=== PATIENT | female | born 1995 | race Caucasian/White ===

== ENCOUNTER 2017-12-15 16:37 | Inpatient (IN) | payer BC, OTHER ==
[~2017-12-15] VITALS: Ht 154.9 cm; Wt 37.0 kg
[2017-12-15] MEDS ORDERED: QUET100T PO (16:58)
[2017-12-15] MEDS ORDERED: MIRT30TA PO (16:58)
[2017-12-15] MEDS ORDERED: PROM25TA15 PO (16:58)
[2017-12-15] MEDS ORDERED: HYDR50TA61 PO (16:58)
[2017-12-15] MEDS ORDERED: PRAZ2CAP2 PO (16:58)
[2017-12-15] MEDS ORDERED: CLON2TAB PO (16:58)
[2017-12-15] MEDS ORDERED: QUET400T PO (16:58)
[2017-12-15] MEDS ORDERED: TRAZ-214 PO (16:58)
[2017-12-15] MEDS ORDERED: HYDROMORPHONE 1 MG/1 ML DISP.SYRIN ONE ×2 (17:15→20:39)
[2017-12-15] MEDS ORDERED: ONDANSETRON 4 MG/2 ML VIAL ONE ×2 (17:15→20:22)
[2017-12-15] MEDS ORDERED: HYDROMORPHONE 1 MG/1 ML DISP.SYRIN IM ONE (17:15)
[2017-12-15] MEDS ORDERED: ONDANSETRON 4 MG/2 ML VIAL IM ONE (17:15)
[2017-12-15 17:26] LABS: BASOPHILS % (AUTO) 0.4 % (0.0-2.0); EOSINOPHILS % (AUTO) 0.3 % (0.0-7.0); HEMATOCRIT 38.6 % (31.2-41.9); HEMOGLOBIN 13.5 g/dL (10.9-14.3); LYMPHOCYTES # (AUTO) 1.9 K/uL (20.0-40.0); LYMPHOCYTES % (AUTO) 25.5 % (20.5-51.5); MEAN CORPUSCULAR HEMOGLOBIN 31.9 uug (24.7-32.8); MEAN CORPUSCULAR HGB CONC 35 g/dL (32.3-35.6); MEAN CORPUSCULAR VOLUME 91.3 fL (75.5-95.3); MONOCYTES # (AUTO) 0.5 K/uL (2.0-10.0); MONOCYTES % (AUTO) 6.4 % (0.0-11.0); NEUTROPHILS % (AUTO) 67.4 % (38.5-71.5); PLATELET COUNT (AUTO) 579 K/uL (179-408); RED BLOOD CELL COUNT(AUTO) 4.23 MIL/uL (3.63-4.92); WHITE BLOOD COUNT (AUTO) 7.4 K/uL (3.8-11.8)
[2017-12-15 17:27] LABS: *URINE HCG, QUAL NEGATIVE (NEGATIVE)
[2017-12-15 17:36] LABS: CREATININE 1.6 mg/dL (0.6-1.3)
[2017-12-15 17:42] LABS: POTASSIUM 2.1 mmol/L (3.5-5.1)
[2017-12-15] MEDS ORDERED: POTASSIUM CHLORIDE 20 MEQ TAB.PRT.SR PO ONE (17:45)
[2017-12-15] MEDS ORDERED: POTASSIUM CHLORIDE 20 MEQ TAB.PRT.SR ONE (17:45)
[2017-12-15] MEDS ORDERED: IV NORMAL SALINE 500 ML BAG IV ONE (18:15)
[2017-12-15] MEDS ORDERED: POTASSIUM CHLORIDE 50 ML ONE ×2 (18:29→21:22)
[2017-12-15] MEDS ORDERED: CLONAZEPAM 1 MG TABLET ONE (18:29)
[2017-12-15] MEDS ORDERED: CLONAZEPAM 0.5 MG TABLET PO ONE (18:30)
[2017-12-15] MEDS: POTASSIUM CHLORIDE 50 ML IV SCH ×3 (18:34→18:44)
[2017-12-15 18:45] LABS: MAGNESIUM 2.6 mg/dL (1.8-2.4); PHOSPHOROUS 4.3 mg/dL (2.5-4.9)
[2017-12-15] MEDS ORDERED: PROMETHAZINE HCL INJ 12.5 MG in IV DEXTROSE 5% 50 ML IV ONE (18:45)
[2017-12-15] MEDS ORDERED: METOCLOPRAMIDE HCL 10 MG/2 ML VIAL ONE (18:54)
[2017-12-15 19:05] LABS: ALANINE AMINOTRANSFERASE 18 U/L (14-59); ALKALINE PHOSPHATASE 107 U/L (50-136); ASPARTATE AMINOTRANSFERASE 26 U/L (15-37); BILIRUBIN,DIRECT 0.1 mg/dL (0.0-0.2); BILIRUBIN,TOTAL 0.3 mg/dL (0.2-1.0); TOTAL PROTEIN, SERUM 10.2 g/dL (6.4-8.2)
[2017-12-15] MEDS ORDERED: METOCLOPRAMIDE HCL 10 MG/2 ML VIAL IV ONE (19:15)
[2017-12-15] MEDS ORDERED: POTASSIUM CHLORIDE 50 ML IV SCH (20:15)
[2017-12-15] MEDS ORDERED: ONDANSETRON 4 MG/2 ML VIAL IV ONE (20:15)
[2017-12-15] MEDS ORDERED: HYDROMORPHONE 1 MG/1 ML DISP.SYRIN IV ONE (20:30)
[2017-12-15] MEDS ORDERED: MORPHINE SULFATE 4 MG/1 ML DISP.SYRIN IV PRN (22:30)
[2017-12-15] MEDS ORDERED: IV 0.9% SODIUM CHLORID+ 20 KCL 1,000 ML IV PRN (22:30)
[2017-12-15] MEDS: MIRTAZAPINE 15 MG TABLET PO SCH (22:49)
[2017-12-15] MEDS: TRAZODONE 100 MG TABLET PO SCH (22:49)
[2017-12-16] VITALS: BP 113/72
[2017-12-16] MEDS: diphenhydrAMINE 50 MG/1 ML VIAL IV PRN (00:31)
[2017-12-16] MEDS ORDERED: QUETIAPINE FUMARATE 100 MG TABLET PO ONE (01:15)
[2017-12-16] MEDS ORDERED: PRAZOSIN HCL 1 MG CAPSULE PO ONE (01:30)
[2017-12-16] MEDS: CLONAZEPAM 1 MG TABLET PO PRN ×2 (01:46→20:54)
[2017-12-16] MEDS: POTASSIUM CHLORIDE 50 ML IV SCH ×2 (01:48→03:32)
[2017-12-16] MEDS: MORPHINE SULFATE 4 MG/1 ML DISP.SYRIN IV PRN ×4 (02:26→11:59)
[2017-12-16 05:00] VITALS: BP 95/63
[2017-12-16 05:26] LABS: *BLOOD, URINE NEGATIVE (NEGATIVE); *CLARITY,URINE SLIGHTLY CLOUDY (CLEAR); *COLOR,URINE DARK YELLOW (YELLOW); *KETONES,URINE TRACE (NEGATIVE); *PROTEIN,URINE 2+ (NEGATIVE); *UROBILINOGEN,URINE 0.2 E.U./dl (NORMAL); LEUKOCYTE ESTERASE ,URINE NEGATIVE (NEGATIVE); NITRITE, URINE NEGATIVE (NEGATIVE); PH,URINE 8.5 (5.0-8.0); UGLUCOSE NEGATIVE (NEGATIVE)
[2017-12-16 05:32] LABS: *BILIRUBIN,URIN 1+ (NEGATIVE)
[2017-12-16 05:34] LABS: *AMPHETAMINE, URINE NEGATIVE (NEGATIVE); *BARBITURATE, URINE NEGATIVE (NEGATIVE); *CANNABINOID, URINE POSITIVE (NEGATIVE); *COCCAINE, URINE NEGATIVE (NEGATIVE); *OPIATE, URINE POSITIVE (NEGATIVE); *PHENCYCLIDINE SCREEN,URINE NEGATIVE (NEGATIVE)
[2017-12-16 05:36] LABS: BACTERIA,URINE FEW /HPF (NONE SEEN); MUCUS,URINE FEW /LPF (0-FEW); SQUAMOUS EPITHELIAL CELL,UR MODERATE /HPF (NONE SEEN)
[2017-12-16] MEDS: PANTOPRAZOLE SODIUM 40 MG TABLET.DR PO SCH (06:20)
[2017-12-16] MEDS: NICOTINE 21 MG/24HR PATCH TD SCH (09:00)
[2017-12-16] MEDS ORDERED: QUETIAPINE FUMARATE 100 MG TABLET PO SCH (09:00)
[2017-12-16] MEDS: ONDANSETRON 4 MG/2 ML VIAL IV PRN ×3 (09:01→17:32)
[2017-12-16 09:41] LABS: BASOPHILS # (AUTO) 0.1 K/uL (0.0-8.0); BASOPHILS % (AUTO) 0.7 % (0.0-2.0); EOSINOPHILS # (AUTO) 0.1 K/uL (0.0-0.7); EOSINOPHILS % (AUTO) 1.9 % (0.0-7.0); HEMATOCRIT 35.3 % (31.2-41.9); HEMOGLOBIN 12.3 g/dL (10.9-14.3); LYMPHOCYTES # (AUTO) 3.3 K/uL (20.0-40.0); LYMPHOCYTES % (AUTO) 41.8 % (20.5-51.5); MEAN CORPUSCULAR HEMOGLOBIN 31.9 uug (24.7-32.8); MEAN CORPUSCULAR HGB CONC 35 g/dL (32.3-35.6); MONOCYTES # (AUTO) 0.5 K/uL (2.0-10.0); MONOCYTES % (AUTO) 5.8 % (0.0-11.0); NEUTROPHILS # (AUTO) 3.9 K/uL (1.8-8.9); NEUTROPHILS % (AUTO) 49.8 % (38.5-71.5); RED BLOOD CELL COUNT(AUTO) 3.84 MIL/uL (3.63-4.92); WHITE BLOOD COUNT (AUTO) 7.8 K/uL (3.8-11.8)
[2017-12-16 09:54] LABS: PLATELET COUNT (AUTO) 407 K/uL (179-408)
[2017-12-16 09:55] LABS: BILIRUBIN,TOTAL 0.2 mg/dL (0.2-1.0); CREATININE 1.4 mg/dL (0.6-1.3); MAGNESIUM 2.5 mg/dL (1.8-2.4); PHOSPHOROUS 2.7 mg/dL (2.5-4.9); TOTAL PROTEIN, SERUM 8.6 g/dL (6.4-8.2)
[2017-12-16 09:57] LABS: POTASSIUM 2.5 mmol/L (3.5-5.1)
[2017-12-16] MEDS ORDERED: POTASSIUM CHLORIDE 20 MEQ TAB.PRT.SR PO ONE ×2 (11:00→11:15)
[2017-12-16 11:31] VITALS: BP 104/59
[2017-12-16] MEDS: POTASSIUM CHLORIDE 10 MEQ, LIDOCAINE-MPF 1% 1 ML in IV DEXTROSE 5% 100 ML IV SCH ×4 (11:31→14:48)
[2017-12-16] MEDS: POTASSIUM CHLORIDE 40 MEQ in IV NS 1000 ML 1,000 ML IV PRN (11:49)
[2017-12-16] MEDS: ACETAMINOPHEN 325 MG TABLET PO PRN (14:17)
[2017-12-16] MEDS: CEPHALEXIN MONOHYDRATE 500 MG CAPSULE PO SCH ×2 (14:19→21:02)
[2017-12-16 15:27] VITALS: BP 91/61
[2017-12-16] MEDS ORDERED: HYDROCODONE/APAP 10-325 MG TABLET PO PRN (16:45)
[2017-12-16] MEDS ORDERED: HYDROCODONE/APAP 5-325MG TABLET PO PRN (16:45)
[2017-12-16 20:22] VITALS: BP 101/55
[2017-12-16] MEDS: QUETIAPINE FUMARATE 100 MG TABLET PO SCH (20:54)
[2017-12-16] MEDS: TRAZODONE 100 MG TABLET PO SCH (20:54)
[2017-12-16] MEDS: MIRTAZAPINE 15 MG TABLET PO SCH (20:55)
[2017-12-16] MEDS: PRAZOSIN HCL 1 MG CAPSULE PO SCH (20:57)
[2017-12-17] VITALS (7 sets, daily range): BP systolic 85–111; BP diastolic 45–77
[2017-12-17] MEDS: CEPHALEXIN MONOHYDRATE 500 MG CAPSULE PO SCH ×3 (05:40→21:04)
[2017-12-17] MEDS: PANTOPRAZOLE SODIUM 40 MG TABLET.DR PO SCH (05:40)
[2017-12-17] MEDS: TRAMADOL HCL 50 MG TABLET PO PRN ×2 (05:42→14:48)
[2017-12-17] MEDS: POTASSIUM CHLORIDE 40 MEQ in IV NS 1000 ML 1,000 ML IV PRN ×2 (05:43→16:52)
[2017-12-17 06:28] LABS: BASOPHILS # (AUTO) 0.1 K/uL (0.0-8.0); BASOPHILS % (AUTO) 1.1 % (0.0-2.0); EOSINOPHILS # (AUTO) 0.2 K/uL (0.0-0.7); EOSINOPHILS % (AUTO) 3.9 % (0.0-7.0); HEMATOCRIT 32.7 % (31.2-41.9); HEMOGLOBIN 11.2 g/dL (10.9-14.3); LYMPHOCYTES # (AUTO) 2.9 K/uL (20.0-40.0); LYMPHOCYTES % (AUTO) 59.4 % (20.5-51.5); MEAN CORPUSCULAR HEMOGLOBIN 32.5 uug (24.7-32.8); MEAN CORPUSCULAR HGB CONC 34 g/dL (32.3-35.6); MEAN CORPUSCULAR VOLUME 94.4 fL (75.5-95.3); MONOCYTES # (AUTO) 0.3 K/uL (2.0-10.0); MONOCYTES % (AUTO) 6.3 % (0.0-11.0); NEUTROPHILS # (AUTO) 1.4 K/uL (1.8-8.9); NEUTROPHILS % (AUTO) 29.3 % (38.5-71.5); PLATELET COUNT (AUTO) 361 K/uL (179-408); RED BLOOD CELL COUNT(AUTO) 3.46 MIL/uL (3.63-4.92); WHITE BLOOD COUNT (AUTO) 4.9 K/uL (3.8-11.8)
[2017-12-17 06:47] LABS: CREATININE 1.1 mg/dL (0.6-1.3); MAGNESIUM 2.1 mg/dL (1.8-2.4); PHOSPHOROUS 1.3 mg/dL (2.5-4.9)
[2017-12-17] MEDS: NICOTINE 21 MG/24HR PATCH TD SCH (09:04)
[2017-12-17] MEDS: ONDANSETRON 4 MG/2 ML VIAL IV PRN (09:04)
[2017-12-17] MEDS: CLONAZEPAM 1 MG TABLET PO PRN (11:13)
[2017-12-17] MEDS: diphenhydrAMINE 50 MG/1 ML VIAL IV PRN (11:14)
[2017-12-17] MEDS ORDERED: CLONAZEPAM 1 MG TABLET PO PRN (15:45)
[2017-12-17] MEDS ORDERED: NEUTRA PHOS PACKET PO ONE (15:45)
[2017-12-17] MEDS: LIDOCAINE 5% PATCH TD SCH (15:52)
[2017-12-17] MEDS: PRAZOSIN HCL 1 MG CAPSULE PO SCH (20:04)
[2017-12-17] MEDS: QUETIAPINE FUMARATE 100 MG TABLET PO SCH (20:04)
[2017-12-17] MEDS: ACETAMINOPHEN 325 MG TABLET PO PRN (20:10)
[2017-12-17] MEDS ORDERED: MIRTAZAPINE 15 MG TABLET PO SCH (21:00)
[2017-12-18] MEDS: POTASSIUM CHLORIDE 40 MEQ in IV NS 1000 ML 1,000 ML IV PRN (02:27)
[2017-12-18 03:39] VITALS: BP 94/61
[2017-12-18] MEDS: CEPHALEXIN MONOHYDRATE 500 MG CAPSULE PO SCH (06:08)
[2017-12-18] MEDS: PANTOPRAZOLE SODIUM 40 MG TABLET.DR PO SCH (06:10)
[2017-12-18 07:18] LABS: CREATININE 0.8 mg/dL (0.6-1.3); PHOSPHOROUS 1.7 mg/dL (2.5-4.9); POTASSIUM 5.6 mmol/L (3.5-5.1)
[2017-12-18] MEDS: NICOTINE 21 MG/24HR PATCH TD SCH (08:24)
[2017-12-18] MEDS: LIDOCAINE 5% PATCH TD SCH (08:25)
[2017-12-18] MEDS: ONDANSETRON 4 MG/2 ML VIAL IV PRN (09:03)
[2017-12-18] MEDS ORDERED: IV NS 1000 ML 1,000 ML IV SCH (11:15)
[2017-12-18] MEDS ORDERED: NEUTRA PHOS PACKET PO ONE (11:15)
[2017-12-18 11:50] VITALS: BP 111/65
[2017-12-18] MEDS ORDERED: LIDO30AD10 TD (13:28)
[2017-12-18] MEDS ORDERED: ONDA4VIA23 IV (13:28)
[2017-12-18] MEDS ORDERED: NICO-672 TD (13:28)
[2017-12-18] MEDS ORDERED: CEPH500C2 PO (13:28)
[2017-12-18] MEDS ORDERED: ACET325T53 PO (13:28)
[2017-12-18] MEDS ORDERED: TRAM50TA2 PO (13:28)
[2017-12-18] MEDS ORDERED: MIRT15TA7 PO (13:28)
[2017-12-18] MEDS ORDERED: PRAZ1CAP2 PO (13:28)
[2017-12-18] MEDS ORDERED: PANT40TA2 PO (13:28)
[2017-12-18] MEDS ORDERED: QUET100T PO (13:28)
== END 2017-12-18 13:55 | disposition short-term general hospital (02) | DRG 640 ==
LOC: ER 16:39 → TELE 20:40 → MED 12-18 12:10
PROVIDERS: ADMIT Internal Medicine; ATTEND Internal Medicine
DX: E87.6 Hypokalemia (principal); N17.0 Acute kidney failure with tubular necrosis; E43 Unspecified severe protein-calorie malnutrition; N39.0 Urinary tract infection, site not specified; Z68.1 Body mass index [BMI] 19.9 or less, adult; F50.00 Anorexia nervosa, unspecified; F50.2 Bulimia nervosa; F11.23 Opioid dependence with withdrawal; F13.239 Sedative, hypnotic or anxiolytic dependence with withdrawal, unspecified; G89.4 Chronic pain syndrome; E86.0 Dehydration; B96.89 Other specified bacterial agents as the cause of diseases classified elsewhere; E78.5 Hyperlipidemia, unspecified; I45.81 Long QT syndrome; I88.9 Nonspecific lymphadenitis, unspecified; F32.9 Major depressive disorder, single episode, unspecified; Z91.81 History of falling; T40.2X5A Adverse effect of other opioids, initial encounter; T42.4X5A Adverse effect of benzodiazepines, initial encounter; Y92.9 Unspecified place or not applicable; R10.13 Epigastric pain; F17.210 Nicotine dependence, cigarettes, uncomplicated; K59.00 Constipation, unspecified; Z79.899 Other long term (current) drug therapy; M79.7 Fibromyalgia; Z81.8 Family history of other mental and behavioral disorders; F43.10 Post-traumatic stress disorder, unspecified; I95.89 Other hypotension
CPT/HCPCS: 36415; 70030-TC; 71045; 72125; 80307; 83735; 84100; 84132; 84443; 84703; 85025; 87086; 93005; 93307; A4663; J1170; J1200; J2001; J2270; J2405; J2550; J2765; J3480; J7030; J7040; J7060

== ENCOUNTER 2018-06-17 21:28 | Emergency (ER) | payer BC ==
[~2018-06-17] VITALS: Ht 165.1 cm; Wt 45.4 kg
[~2018-06-17 21:28] MED LIST: ACET325T53 PO; CEPH500C2 PO; CLON2TAB PO; HYDR50TA61 PO; LIDO30AD10 TD; MIRT15TA7 PO; MIRT30TA PO; NICO-672 TD; ONDA4VIA23 IV; PANT40TA2 PO; PRAZ1CAP2 PO; PRAZ2CAP2 PO; PROM25TA15 PO; QUET100T PO; QUET400T PO; TRAM50TA2 PO; TRAZ-214 PO
--- NOTE | 2018-06-17 21:40 | NUR ---
Came in for abdominal pain x 5 weeks with nausea. Patient crying and grasping abdomen. To room 1B.
--- NOTE | 2018-06-17 22:00 | NUR ---
Seen and evaluated by Dr. Martinez.
[2018-06-17] MEDS ORDERED: ONDANSETRON 4 MG/2 ML VIAL IV ONE (22:15)
[2018-06-17] MEDS ORDERED: IV NORMAL SALINE 1000 ML BAG IV ONE (22:15)
[2018-06-17] MEDS ORDERED: HYDROMORPHONE 1 MG/1 ML DISP.SYRIN IV ONE ×2 (22:15→22:45)
[2018-06-17 22:19] LABS: BASOPHILS # (AUTO) 0.1 K/uL (0.0-8.0); EOSINOPHILS # (AUTO) 0.2 K/uL (0.0-0.7); EOSINOPHILS % (AUTO) 2.7 % (0.0-7.0); HEMATOCRIT 28.8 % (31.2-41.9); HEMOGLOBIN 9.7 g/dL (10.9-14.3); LYMPHOCYTES # (AUTO) 2.8 K/uL (20.0-40.0); LYMPHOCYTES % (AUTO) 35.8 % (20.5-51.5); MEAN CORPUSCULAR HEMOGLOBIN 30.1 uug (24.7-32.8); MEAN CORPUSCULAR HGB CONC 34 g/dL (32.3-35.6); MEAN CORPUSCULAR VOLUME 89.1 fL (75.5-95.3); MONOCYTES # (AUTO) 0.6 K/uL (2.0-10.0); MONOCYTES % (AUTO) 7.5 % (0.0-11.0); NEUTROPHILS # (AUTO) 4.2 K/uL (1.8-8.9); PLATELET COUNT (AUTO) 363 K/uL (179-408); RED BLOOD CELL COUNT(AUTO) 3.24 MIL/uL (3.63-4.92); WHITE BLOOD COUNT (AUTO) 7.9 K/uL (3.8-11.8)
[2018-06-17] MEDS ORDERED: HYDROMORPHONE 2 MG/1 ML DISP.SYRIN IV ONE (22:21)
[2018-06-17 22:27] LABS: CREATININE 0.7 mg/dL (0.6-1.3); POTASSIUM 3.8 mmol/L (3.5-5.1)
--- NOTE | 2018-06-17 22:30 | NUR ---
Lamine moran in [facility] - 06/17/18 at 2321 by LELA Seen and evaluated by Dr. Martinez.
[2018-06-17 22:39] LABS: BILIRUBIN,DIRECT 0.1 mg/dL (0.0-0.2); BILIRUBIN,TOTAL 0.2 mg/dL (0.2-1.0); TOTAL PROTEIN, SERUM 8.4 g/dL (6.4-8.2)
[2018-06-17] MEDS ORDERED: PANTOPRAZOLE SODIUM 40 MG VIAL IV ONE (22:45)
[2018-06-17] MEDS ORDERED: ONDANSETRON IV *ER 4 MG/2 ML VIAL IV ONE (22:45)
[2018-06-17 22:47] LABS: *BILIRUBIN,URIN NEGATIVE (NEGATIVE); *BLOOD, URINE NEGATIVE (NEGATIVE); *CLARITY,URINE CLEAR (CLEAR); *COLOR,URINE YELLOW (YELLOW); *KETONES,URINE NEGATIVE (NEGATIVE); *UROBILINOGEN,URINE 0.2 E.U./dl (NORMAL); LEUKOCYTE ESTERASE ,URINE NEGATIVE (NEGATIVE); NITRITE, URINE NEGATIVE (NEGATIVE); PH,URINE 8.5 (5.0-8.0); UGLUCOSE NEGATIVE (NEGATIVE)
[2018-06-17] MEDS ORDERED: HYDROMORPHONE 2 MG/1 ML DISP.SYRIN ONE (22:52)
[2018-06-17] MEDS ORDERED: ONDANSETRON 4 MG/2 ML VIAL ONE (22:52)
[2018-06-17] MEDS ORDERED: PANTOPRAZOLE SODIUM 40 MG VIAL ONE (22:52)
[2018-06-17 22:56] LABS: SQUAMOUS EPITHELIAL CELL,UR MODERATE /HPF (NONE SEEN); URINE AMORPHOUS PHOSPHATES FEW /HPF; WBC,URINE 0-3 /HPF (0-3)
--- NOTE | 2018-06-17 23:00 | NUR ---
To CT scan.
--- NOTE | 2018-06-17 23:20 | NUR ---
Back from CT scan.
[2018-06-18] MEDS ORDERED: ONDANSETRON 4 MG/2 ML VIAL ONE (00:30)
[2018-06-18] MEDS ORDERED: HYDROMORPHONE 1 MG/1 ML DISP.SYRIN IV ONE (00:30)
[2018-06-18] MEDS ORDERED: ONDANSETRON IV *ER 4 MG/2 ML VIAL IV ONE (00:30)
[2018-06-18] MEDS ORDERED: HYDROMORPHONE 2 MG/1 ML DISP.SYRIN ONE (00:30)
--- NOTE | 2018-06-18 00:30 | NUR ---
Patient still with abdominal pain and nausea. Zofran and Dilaudid IV given as per MD order.
--- NOTE | 2018-06-18 00:45 | NUR ---
Patient discharged to home in stable conditon. Written and verbal after care instructions given. Patient verbalizes understanding of instructions.
[2018-06-18 01:00] VITALS: BP 114/59
== END 2018-06-18 00:45 | disposition home or self-care (01) ==
LOC: ER 21:30
DX: G89.29 Other chronic pain (principal); F45.42 Pain disorder with related psychological factors; R10.9 Unspecified abdominal pain; R11.2 Nausea with vomiting, unspecified; Z88.8 Allergy status to other drugs, medicaments and biological substances; Z79.899 Other long term (current) drug therapy
CPT/HCPCS: 36415; 74176; 80048; 80076; 81001; 83690; 84702; 85025; 96361; 96374; 96375; 96376; 99284; C9113; J1170 ×3; J2405 ×3; A4663; J7030